=== PATIENT | male | born 1985 | race Caucasian/White ===

== ENCOUNTER 2017-06-11 17:52 | Emergency (ER) | payer OTHER ==
[~2017-06-11] VITALS: Ht 170.2 cm; Wt 81.6 kg
[2017-06-11] MEDS ORDERED: CYCLOBENZAPRINE 10 MG TAB PO ONE (18:00)
[2017-06-11] MEDS ORDERED: KETOROLAC 30 MG/ML VIAL IM ONE (18:00)
[2017-06-11 18:01] VITALS: BP 140/81
[2017-06-11] MEDS ORDERED: IBUP800T99 PO (18:08)
--- NOTE | 2017-06-11 18:33 | NUR ---
PATIENT IS A 31 YO MALE BIB [facility] HOME FOR INCREASED PAOIN IN LOWER BACK. PATIENT IS AWAKE AND ALERT DOES NOT APPEAR TO BE IN ACUTE DISTRESS, ON AMBULANCE SCOOBY HYMAN HAS EVALUATED HIM.
[2017-06-11] MEDS ORDERED: HYDROcodone/APAP 10/325 MG 1 TAB TAB PO ONE (18:45)
[2017-06-11] MEDS ORDERED: predniSONE 20 MG TAB PO ONE (18:50)
--- NOTE | 2017-06-11 18:52 | NUR ---
PATIENT MOVED FROM AMBULANCE GURNEY TO WHEELCHAIR AND MEDICATED PER ORDER.
--- NOTE | 2017-06-11 19:48 | NUR ---
PT TAKEN TO XRAY
--- NOTE | 2017-06-11 20:00 | NUR ---
Patient discharged with v/s stable. Written and verbal after care instructions given and explained. Patient alert, oriented and verbalized understanding of instructions. Ambulatory with steady gait. All questions addressed prior to discharge. ID band removed. Patient advised to follow up with PMD. Rx of NAPROXEN AND FLEXERIL given. Patient educated on indication of medication including possible reaction and side effects. Opportunity to ask questions provided and answered.
[2017-06-11 20:14] VITALS: BP 150/94
== END 2017-06-11 20:00 | disposition home or self-care (01) ==
LOC: MED 17:52
DX: M54.5 Low back pain (principal); Z79.899 Other long term (current) drug therapy
CPT/HCPCS: 72110; 96372; 99284; J1885; J7512